=== PATIENT | female | born 2000 | race Caucasian/White ===

== ENCOUNTER 2018-07-17 14:33 | Emergency (ER) | payer MEDICAID ==
[2018-07-17 14:57] VITALS: RESP 18; TEMP 98.8; O2SAT 97
--- NOTE | 2018-07-17 17:10 | ED PDOC ---
HPI: General Adult Time Seen by Provider: 07/17/18 15:10 Chief Complaint (Nursing): Abdominal Pain Chief Complaint (Provider): Pelvic Pain History Per: Patient History/Exam Limitations: no limitations Onset/Duration Of Symptoms: Sudden Onset (around 1300 today) Current Symptoms Are (Timing): Still Present (but improving) Additional Complaint(s): 17 year old female presents to the ED with mother for evaluation of sudden onset left sided pelvic pain around 1300 today described as strong and sharp, associated with transient chills and a subjective fever which has been improving since. Otherwise, denies vaginal bleeding, vaginal discharge, vomiting, diarrhea, and dysuira. Patient notes having normal bowel movements. Of note, she admits being sexually active with one partner and no history of STDs. LNMP: sometime in June, as per pt Past Medical History Reviewed: Historical Data, Nursing Documentation, Vital Signs Vital Signs: Last Vital Signs Temp 98.8 F 07/17/18 14:54 Pulse 73 07/17/18 14:54 Resp 18 07/17/18 14:54 BP 138/87 07/17/18 14:54 Pulse Ox 97 07/17/18 14:54 Primary Care Provider: FAMILY PROVIDER,NO (Dr. Monte?) - Medical History PMH: No Chronic Diseases Denies: Sexually Transmitted Disease - Surgical History Surgical History: Back Surgery - Family History Family History: States: Unknown Family Hx - Social History Current smoker - smoking cessation education provided: Yes (hookah) Alcohol: None Drugs: Denies - Home Medications Home Medications: Ambulatory Orders Medication Instructions Recorded Ibuprofen [Motrin] 600 mg PO Q6H PRN #20 tab 07/17/18 - Allergies Allergies/Adverse Reactions: Allergies Allergy/AdvReac Type Severity Reaction Status Date / Time No Known Allergies Allergy Verified 07/17/18 14:58 Review of Systems ROS Statement: Except As Marked, All Systems Reviewed And Found Negative Constitutional: Positive for: Fever (subjective, transient), Chills (transient) Gastrointestinal: Positive for: Other (normal bowel movements). Negative for: Vomiting, Diarrhea Genitourinary Female: Positive for: Pelvic Pain (left sided, sharp ). Negative for: Dysuria, Vaginal Discharge, Vaginal Bleeding Physical Exam - Reviewed Nursing Documentation Reviewed: Yes Vital Signs Reviewed: Yes - Physical Exam Appears: Positive for: No Acute Distress Head Exam: Positive for: ATRAUMATIC, NORMAL INSPECTION, NORMOCEPHALIC Skin: Positive for: Normal Color, Warm, DRY Eye Exam: Positive for: EOMI, Normal appearance, PERRL ENT: Positive for: Normal ENT Inspection Neck: Positive for: Normal, Painless ROM, Supple Cardiovascular/Chest: Positive for: Regular Rate, Rhythm Respiratory: Positive for: Normal Breath Sounds. Negative for: Accessory Muscle Use, Respiratory Distress Gastrointestinal/Abdominal: Positive for: Normal Exam, Bowel Sounds, Soft, Other (left pelvic tenderness). Negative for: Tenderness (to LLQ), Mass, Distended, Guarding Back: Positive for: Normal Inspection Extremity: Positive for: Normal ROM (all extremities) Neurological/Psych: Positive for: Awake, Alert, Oriented (x3). Negative for: Motor/Sensory Deficits - Laboratory Results Result Diagrams: 07/17/18 17:40 07/17/18 17:40 Urine POC: Negative - ECG O2 Sat by Pulse Oximetry: 97 (RA) Pulse Ox Interpretation: Normal Medical Decision Making Medical Decision Making: Time: 1703 Initial Impression:llq pelvic pain r/o ovarian torsion, r/o UTI Initial Plan: --CMP --CBC with differential --Urine culture --Urinalysis --US transvaginal 1749 US FINDINGS: UTERUS: Measures 7.1 x 4.5 x 3.9 cm. Anteverted. ENDOMETRIUM: Measures 1.0 cm in diameter. CERVIX: No cervical abnormality identified. RIGHT OVARY: Measures 3.0 x 2.1 x 1.7 cm. Blood flow is demonstrated. LEFT OVARY: Measures 3.5 x 2.0 x 2.3 cm. Blood flow is demonstrated. FREE FLUID: No significant free fluid noted. OTHER FINDINGS: None. IMPRESSION: Unremarkable pelvic ultrasound as above. 1824 Labs reviewed with no clinically significant abnormalities. US unremarkable. Discussed negative workup with patient and answered all questions. Advised her to follow up with OBGYN. Stable for d/c after Motrin administered, reports feeling improved. Scribe Attestation: Documented by Arianna Felipe, acting as a scribe for Fredis Gilliland MD. Provider Scribe Attestation: All medical record entries made by the Scribe were at my direction and personally dictated by me. I have reviewed the chart and agree that the record accurately reflects my personal performance of the history, physical exam, medical decision making, and the department course for this patient. I have also personally directed, reviewed, and agree with the discharge instructions and disposition. Disposition - Clinical Impression Clinical Impression: Adnexal pain - Patient ED Disposition Is Patient to be Admitted: No Counseled Patient/Family Regarding: Studies Performed, Diagnosis - Disposition Referrals: [facility]Outside] [facility] [Outside[facility] Disposition: Routine/Home Disposition Time: 18:00 Condition: IMPROVED Additional Instructions: follow up with service girl as instructed within 2 days return to the ED with any worsening or concerning symptoms Prescriptions: Ibuprofen [Motrin] 600 mg PO Q6H PRN #20 tab PRN Reason: Pain, Moderate (4-7) Instructions: Acute Pelvic Pain (DC) Forms: [email or web address] [facility] ([place])
[2018-07-17 17:40] LABS: SQUAMOUS EPITHIAL 2 /hpf (0-5); URINE BILIRUBIN NEGATIVE (NEGATIVE); URINE BLOOD NEGATIVE (NEGATIVE); URINE CLARITY SLIGHTY-CLOUDY (Clear); URINE COLOR YELLOW (YELLOW); URINE GLUCOSE (UA) NEG (NEGATIVE); URINE LEUKOCYTE ESTERASE NEG Leu/uL (Negative); URINE PROTEIN 30 mg/dL (NEGATIVE); URINE UROBILINOGEN 0.2-1.0 mg/dL (0.2-1.0)
[2018-07-17 17:52] LABS: BASO % 0.3 % (0.0-2.0); EOS % 0.3 % (0.0-4.0); HEMOGLOBIN 13.2 g/dL (12.0-16.0); LYMPH % 18.5 % (20.0-40.0); MEAN CELL VOLUME 90.8 fl (81.0-99.0); MEAN CORPUSCULAR HGB CONC 33.1 g/dL (33.0-37.0); MEAN PLATELET VOLUME 8.3 fl (7.2-11.7); MONO # 0.7 K/uL (0.0-0.8); MONO % 6.6 % (0.0-10.0); NEUT % 74.3 % (50.0-75.0); RBC 4.41 Mil/uL (3.80-5.20); RED CELL DISTRIBUTION WIDTH 16.2 % (11.5-14.5); WHITE BLOOD COUNT 10.7 K/uL (4.8-10.8)
--- NOTE | 2018-07-17 17:54 | US ---
Date of service: 07/17/2018 HISTORY: left adnexal pain rule out torsion COMPARISON: None available. TECHNIQUE: Transvaginal pelvic ultrasound FINDINGS: UTERUS: Measures 7.1 x 4.5 x 3.9 cm. Anteverted. ENDOMETRIUM: Measures 1.0 cm in diameter. CERVIX: No cervical abnormality identified. RIGHT OVARY: Measures 3.0 x 2.1 x 1.7 cm. Blood flow is demonstrated. LEFT OVARY: Measures 3.5 x 2.0 x 2.3 cm. Blood flow is demonstrated. FREE FLUID: No significant free fluid noted. OTHER FINDINGS: None. IMPRESSION: Unremarkable pelvic ultrasound as above.
[2018-07-17 18:02] LABS: ALB/GLOB RATIO 1.5 (1.0-2.1); ALBUMIN 4.4 g/dL (3.5-5.0); ALT/SGPT 27 U/L (9-52); AST/SGOT 35 U/L (14-36); BLOOD UREA NITROGEN 14 mg/dl (7-17); CALCIUM 8.9 mg/dL (8.4-10.2); GFR NON-AFRICAN AMERICAN > 60
[2018-07-17 19:01] VITALS: BP 130/80; PULSE 70
== END 2018-07-17 18:50 | disposition home or self-care (01) ==
LOC: H.ER 14:33
DX: R10.2 Pelvic and perineal pain (principal)